=== PATIENT | male | born 1955 | race Caucasian/White ===

== ENCOUNTER 2019-10-14 10:39 | Outpatient (CLI) | payer OTHER, SELFPAY ==
--- NOTE | 2019-10-14 10:54 | XRR_ITS ---
PROCEDURE INFORMATION: Exam: XR Left Foot Complete Exam date and time: 10/14/2019 11:10 AM Age: 64 years old Clinical indication: Pain; Foot; Left; Additional info: Foot pain TECHNIQUE: Imaging protocol: XR Left foot. Views: 3 or more views. COMPARISON: No relevant prior studies available. FINDINGS: Bones/joints: Severe degenerative changes at the first metatarsophalangeal joint. Soft tissues: Normal. XR/XR foot LT min 3V* [id number] IMPRESSION: Severe degenerative changes at the first metatarsophalangeal joint.
== END 2019-10-14 10:40 | disposition home or self-care (01) ==
LOC: RAD 10:45
PROVIDERS: Family Provider Family Medicine; PCP Family Medicine; Visit Provider Family Medicine
DX: M19.072 Primary osteoarthritis, left ankle and foot (principal); M79.672 Pain in left foot
CPT/HCPCS: 73630; 80053; 80061; 83036; 85025

== ENCOUNTER 2019-10-22 08:28 | Outpatient (CLI) | payer OTHER, SELFPAY ==
[2019-10-22 09:50] LABS: Albumin Level 4.2 g/dL (3.5-5.2); Blood Urea Nitrogen 45 mg/dL (8-23); Calcium 9.9 mg/dL (8.5-10.5); Carbon Dioxide 26 mmol/L (22-29); Chloride 105 mmol/L (98-107); Glucose 106 mg/dL (65-115); Sodium 141 mmol/L (136-145)
[2019-10-22 09:54] LABS: Creatinine Urine, Random 124 mg/dL (39-259)
[2019-10-22 10:09] LABS: Microalbum Creatinine Ratio Ur 460 mg/dL (0-20); Microalbumin Random Urine 57 ug/dL (0-20)
[2019-10-22 10:29] LABS: Calcium 9.7 mg/dL (8.5-10.5); Parathyroid Hormone 99.8 pg/mL (15-65)
== END 2019-10-22 08:29 | disposition home or self-care (01) ==
LOC: LAB 08:28
PROVIDERS: Family Provider Family Medicine; PCP Family Medicine; Visit Provider Internal Medicine Nephrology
DX: N18.4 Chronic kidney disease, stage 4 (severe) (principal)
CPT/HCPCS: 80069; 82044; 82310; 83970

== ENCOUNTER → 2019-10-29 07:47 | Outpatient (BNVA) | payer OTHER, SELFPAY | PROVIDERS: Family Provider Family Medicine; PCP Family Medicine; Visit Provider Urology | DX: C61 Malignant neoplasm of prostate (principal); Z85.46 Personal history of malignant neoplasm of prostate; N52.9 Male erectile dysfunction, unspecified; N39.3 Stress incontinence (female) (male) | CPT/HCPCS: 81001; 84153 ==

== ENCOUNTER 2020-01-19 07:52 | Outpatient (CLI) | payer OTHER, MEDICARE, SELFPAY ==
[2020-01-19 08:30] LABS: Albumin Level 4.2 g/dL (3.5-5.2); Anion Gap 17.4 (5-19); Blood Urea Nitrogen 48 mg/dL (8-23); Calcium 9.2 mg/dL (8.5-10.5); Carbon Dioxide 25 mmol/L (22-29); Chloride 100 mmol/L (98-107); Glomerular Filtration Rate 15.1 mL/min (90-130); Glucose 147 mg/dL (65-115); Phosphorus 4.2 mg/dL (2.5-4.5); Potassium 3.4 mmol/L (3.5-5.1); Sodium 139 mmol/L (136-145)
[2020-01-19 08:53] LABS: Parathyroid Hormone 102.4 pg/mL (15-65)
== END 2020-01-19 07:53 | disposition home or self-care (01) ==
LOC: LAB 07:54
PROVIDERS: Family Provider Family Medicine; PCP Family Medicine; Visit Provider Internal Medicine Nephrology
DX: N18.4 Chronic kidney disease, stage 4 (severe) (principal)
CPT/HCPCS: 80069; 82310; 83970

== ENCOUNTER → 2020-02-02 09:18 | Outpatient (BNVA) | payer OTHER, SELFPAY | PROVIDERS: Family Provider Family Medicine; PCP Family Medicine; Visit Provider Family Medicine | DX: E11.21 Type 2 diabetes mellitus with diabetic nephropathy (principal); Z79.4 Long term (current) use of insulin; E78.00 Pure hypercholesterolemia, unspecified | CPT/HCPCS: 80061; 83036 ==

== ENCOUNTER 2020-02-04 09:26 | Outpatient (CLI) | payer OTHER, SELFPAY ==
--- NOTE | 2020-02-04 09:33 | XR_ITS ---
WS: [id number] LATERAL CERVICAL SPINE: 3 view. Lateral radiographs are performed in upright neutral, flexion and extension to the patient's toleranc e. HISTORY: Neck pain COMPARISON: 08/10/2019 Very slight straightening of the normal cervical lordosis. Slight straightening is new since the prio r study. Mild disc space narrowing at C5-6. With flexion and extension there is no significant instab ility. Less than 2 mm anterolisthesis of C4 during neutral and flexion. Developing osteophyte anterio rly at C5-6. XR/XR cervical spine fl/ex [id number] IMPRESSION: 1. No cervical instability. 2. Mild spondylitic changes are stable.
== END 2020-02-04 09:27 | disposition home or self-care (01) ==
LOC: RADWPI 09:29
PROVIDERS: Family Provider Family Medicine; PCP Family Medicine; Visit Provider Licensed Practical Nurse
DX: M54.2 Cervicalgia (principal)
CPT/HCPCS: 72040

== ENCOUNTER 2020-02-25 11:08 | Outpatient (CLI) | payer MEDICARE, OTHER, SELFPAY ==
[2020-02-25 12:09] LABS: Albumin Level 4.5 g/dL (3.5-5.2); Anion Gap 19.9 (5-19); Blood Urea Nitrogen 41 mg/dL (8-23); Calcium 9.8 mg/dL (8.5-10.5); Carbon Dioxide 25 mmol/L (22-29); Chloride 101 mmol/L (98-107); Glucose 195 mg/dL (65-115); Phosphorus 3.9 mg/dL (2.5-4.5); Potassium 3.9 mmol/L (3.5-5.1); Sodium 142 mmol/L (136-145)
== END 2020-02-25 11:09 | disposition home or self-care (01) ==
LOC: LAB 11:19
PROVIDERS: PCP Family Medicine; Visit Provider Internal Medicine Nephrology
DX: N18.5 Chronic kidney disease, stage 5 (principal)
CPT/HCPCS: 36415; 80069

== ENCOUNTER 2020-04-26 07:45 | Outpatient (CLI) | payer MEDICARE, OTHER, SELFPAY ==
[2020-04-26 08:41] LABS: Basophils # 0.1 10^3/uL (0.0-0.1); Basophils % 0.7 %; Eosinophils # 0.3 10^3/uL (0.0-0.8); Eosinophils % 3.8 %; Hemoglobin 12.9 g/dL (11.7-16.6); Lymphocytes # 1.3 10^3/uL (0.8-4.8); Lymphocytes % 18.6 %; Mean Corpuscular HGB Conc 32.3 g/dL (30.0-36.0); Mean Corpuscular Hemoglobin 28.9 pg (28.0-34.0); Mean Corpuscular Volume 89.7 fL (80-94); Mean Platelet Volume 11.2 fL (7.4-10.4); Monocytes # 0.5 10^3/uL (0.2-0.9); Monocytes % 7.2 %; Neutrophils # 4.91 10^3/uL (1.8-7.7); Neutrophils % 69.3 %; Nucleated Red Blood Cells % 0 %; Platelet Count 224 10^3/cmm (130-400); Red Blood Count 4.46 10^6/uL (4.1-5.3); Red Cell Distribution Width 12.3 % (12.1-15.1); White Blood Count 7.1 10^3/uL (4.0-10.0)
[2020-04-26 09:23] LABS: 25 Hydroxy Vitamin D 41 ng/mL (30-100); Albumin Level 4.3 g/dL (3.5-5.2); Anion Gap 14.8 (5-19); Blood Urea Nitrogen 44 mg/dL (8-23); Calcium 9.2 mg/dL (8.5-10.5); Carbon Dioxide 24 mmol/L (22-29); Chloride 104 mmol/L (98-107); Glucose 152 mg/dL (65-115); Phosphorus 3.4 mg/dL (2.5-4.5); Potassium 3.8 mmol/L (3.5-5.1); Sodium 139 mmol/L (136-145)
[2020-04-26 09:34] LABS: Calcium 9.9 mg/dL (8.5-10.5); Parathyroid Hormone 103.8 pg/mL (15-65)
== END 2020-04-26 07:46 | disposition home or self-care (01) ==
LOC: LAB 07:51
PROVIDERS: PCP Family Medicine; Visit Provider Internal Medicine Nephrology
DX: N18.5 Chronic kidney disease, stage 5 (principal)
CPT/HCPCS: 36415; 80069; 82306; 82310; 83970; 85025

== ENCOUNTER → 2020-05-05 09:28 | Outpatient (BNVA) | payer MEDICARE, SELFPAY | PROVIDERS: PCP Family Medicine; Visit Provider Family Medicine | DX: E11.21 Type 2 diabetes mellitus with diabetic nephropathy (principal); Z79.4 Long term (current) use of insulin | CPT/HCPCS: 83036 ==

== ENCOUNTER 2020-06-27 08:20 | Outpatient (CLI) | payer MEDICARE, SELFPAY | END 2020-06-27 08:21 | disposition home or self-care (01) | LOC: LAB 08:24 | PROVIDERS: PCP Family Medicine; Visit Provider Internal Medicine Nephrology | DX: Z01.89 Encounter for other specified special examinations (principal) | CPT/HCPCS: 36415 ==

== ENCOUNTER → 2020-08-04 08:42 | Outpatient (BNVA) | payer MEDICARE, OTHER, SELFPAY | PROVIDERS: PCP Family Medicine; Visit Provider Family Medicine | DX: E11.21 Type 2 diabetes mellitus with diabetic nephropathy (principal); Z79.4 Long term (current) use of insulin; I10 Essential (primary) hypertension; E78.00 Pure hypercholesterolemia, unspecified; N18.4 Chronic kidney disease, stage 4 (severe); L72.3 Sebaceous cyst | CPT/HCPCS: 83036 ==

== ENCOUNTER 2020-08-17 07:51 | Outpatient (CLI) | payer MEDICARE, OTHER, SELFPAY ==
[2020-08-17 08:59] LABS: Creatinine Urine, Random 110 mg/dL (39-259); Microalbumin Random Urine 32 ug/dL (0-20)
[2020-08-17 09:00] LABS: Albumin Level 4.2 g/dL (3.5-5.2); Anion Gap 14.9 (5-19); Blood Urea Nitrogen 41 mg/dL (8-23); Carbon Dioxide 24 mmol/L (22-29); Chloride 107 mmol/L (98-107); Glucose 171 mg/dL (65-115); Phosphorus 3.7 mg/dL (2.5-4.5); Potassium 3.9 mmol/L (3.5-5.1); Sodium 142 mmol/L (136-145)
[2020-08-17 09:01] LABS: Microalbum Creatinine Ratio Ur 291 mg/dL (0-20); Parathyroid Hormone 115.3 pg/mL (15-65)
== END 2020-08-17 07:52 | disposition home or self-care (01) ==
LOC: LAB 07:54
PROVIDERS: PCP Family Medicine; Visit Provider Internal Medicine Nephrology
DX: N18.4 Chronic kidney disease, stage 4 (severe) (principal)
CPT/HCPCS: 80069; 82044; 82310; 83970

== ENCOUNTER → 2020-10-18 08:32 | Outpatient (BNVA) | payer MEDICARE, OTHER, SELFPAY | PROVIDERS: PCP Family Medicine; Visit Provider Family Medicine | DX: I10 Essential (primary) hypertension (principal); E78.00 Pure hypercholesterolemia, unspecified; E11.21 Type 2 diabetes mellitus with diabetic nephropathy; Z79.4 Long term (current) use of insulin | CPT/HCPCS: 80061; 83036; 85025 ==

== ENCOUNTER 2020-11-24 09:00 | Outpatient (CLI) | payer MEDICARE, OTHER, SELFPAY ==
[2020-11-24 10:18] LABS: Urine Creatinine 44 mg/dL (39-259)
[2020-11-24 10:20] LABS: Albumin Level 3.9 g/dL (3.5-5.2); Anion Gap 13.7 (5-19); Blood Urea Nitrogen 39 mg/dL (8-23); Calcium 9.3 mg/dL (8.5-10.5); Carbon Dioxide 24 mmol/L (22-29); Chloride 105 mmol/L (98-107); Glomerular Filtration Rate 18.2 mL/min (90-130); Glucose 227 mg/dL (65-115); Phosphorus 3.6 mg/dL (2.5-4.5); Potassium 3.7 mmol/L (3.5-5.1); Sodium 139 mmol/L (136-145)
[2020-11-24 10:28] LABS: Calcium 9.2 mg/dL (8.5-10.5); Parathyroid Hormone 97.8 pg/mL (15-65)
== END 2020-11-24 09:01 | disposition home or self-care (01) ==
LOC: LAB 11-25 07:39
PROVIDERS: PCP Family Medicine; Visit Provider Internal Medicine Nephrology
DX: N18.4 Chronic kidney disease, stage 4 (severe) (principal)
CPT/HCPCS: 80069; 82310; 82570; 83970

== ENCOUNTER → 2020-12-14 08:08 | Outpatient (BNVA) | payer MEDICARE, OTHER, SELFPAY | PROVIDERS: PCP Family Medicine; Visit Provider Urology | DX: N18.4 Chronic kidney disease, stage 4 (severe) (principal); N39.3 Stress incontinence (female) (male); R97.20 Elevated prostate specific antigen [PSA]; Z85.46 Personal history of malignant neoplasm of prostate | CPT/HCPCS: 81003; 84153 ==

== ENCOUNTER → 2021-01-17 08:57 | Outpatient (BNVA) | payer MEDICARE, OTHER, SELFPAY | PROVIDERS: PCP Family Medicine; Visit Provider Family Medicine | DX: E11.21 Type 2 diabetes mellitus with diabetic nephropathy (principal); Z79.4 Long term (current) use of insulin | CPT/HCPCS: 80053; 83036 ==

== ENCOUNTER 2021-01-24 07:44 | Outpatient (CLI) | payer MEDICARE, OTHER, SELFPAY | END 2021-01-24 07:45 | disposition home or self-care (01) | LOC: LAB 07:46 | PROVIDERS: PCP Family Medicine; Visit Provider Internal Medicine Nephrology | DX: Z01.89 Encounter for other specified special examinations (principal) | CPT/HCPCS: 36415 ==

== ENCOUNTER 2021-02-24 08:49 | Outpatient (CLI) | payer MEDICARE, OTHER, SELFPAY ==
[2021-03-08 13:09] LABS: Miscellaneous Test SENT
== END 2021-02-24 08:50 | disposition home or self-care (01) ==
PROVIDERS: PCP Family Medicine; Visit Provider Internal Medicine Nephrology
DX: Z01.818 Encounter for other preprocedural examination (principal); N18.4 Chronic kidney disease, stage 4 (severe)
CPT/HCPCS: 36415

== ENCOUNTER 2021-03-06 14:13 | Outpatient (CLI) | payer MEDICARE, OTHER, SELFPAY ==
--- NOTE | 2021-03-06 14:18 | XR_ITS ---
WS: [id number] KNEE LEFT TECHNIQUE: 3 views of the left knee CLINICAL INFORMATION: acute left knee pain COMPARISON: None. FINDINGS: Left knee is normal in appearance. No evidence of acute fracture dislocation. Moderate soft tissue ed dagoberto. Hypertrophic patella. Small suprapatellar effusion. Moderate degenerative narrowing at the dhaliwal lofemoral articulation. XR/XR knee LT 3V* [id number] IMPRESSION: 1. 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 2. Small suprapatellar effusion with soft tissue edema. Kellgren-Harshal Classification: grade 2 (minimal): definite osteophytes and p ossible joint space narrowing
== END 2021-03-06 14:14 | disposition home or self-care (01) ==
PROVIDERS: PCP Family Medicine; Visit Provider Family Medicine
DX: M25.562 Pain in left knee (principal); R60.0 Localized edema; M25.462 Effusion, left knee; M13.862 Other specified arthritis, left knee
CPT/HCPCS: 73562; 86618; 86666; 86757

== ENCOUNTER 2021-03-24 08:04 | Outpatient (CLI) | payer MEDICARE, OTHER, SELFPAY ==
[2021-03-24 09:08] LABS: Basophils % 0.7 %; Eosinophils # 0.2 10^3/uL (0.0-0.8); Eosinophils % 2.7 %; Hemoglobin 13.2 g/dL (11.7-16.6); Lymphocytes # 1.1 10^3/uL (0.8-4.8); Lymphocytes % 18.5 %; Mean Corpuscular Hemoglobin 29.9 pg (28.0-34.0); Mean Corpuscular Volume 90.5 fL (80-94); Monocytes # 0.4 10^3/uL (0.2-0.9); Monocytes % 6.3 %; Neutrophils # 4.19 10^3/uL (1.8-7.7); Neutrophils % 71.1 %; Nucleated Red Blood Cells % 0 %; Platelet Count 174 10^3/cmm (130-400); Red Blood Count 4.42 10^6/uL (4.1-5.3); Red Cell Distribution Width 12.1 % (12.1-15.1); White Blood Count 5.9 10^3/uL (4.0-10.0)
[2021-03-24 09:19] LABS: Albumin Level 3.9 g/dL (3.5-5.2); Anion Gap 15.8 (5-19); Blood Urea Nitrogen 35 mg/dL (8-23); Carbon Dioxide 24 mmol/L (22-29); Chloride 106 mmol/L (98-107); Glucose 205 mg/dL (65-115); Phosphorus 3.5 mg/dL (2.5-4.5); Potassium 3.8 mmol/L (3.5-5.1); Sodium 142 mmol/L (136-145)
[2021-03-24 09:32] LABS: Calcium 8.8 mg/dL (8.5-10.5)
[2021-03-24 09:52] LABS: Creatinine Urine, Random 50 mg/dL (39-259); Microalbum Creatinine Ratio Ur 520 mg/dL (0-20); Microalbumin Random Urine 26 ug/dL (0-20)
[2021-03-24 10:12] LABS: Parathyroid Hormone 75.3 pg/mL (15-65)
== END 2021-03-24 08:05 | disposition home or self-care (01) ==
LOC: LAB 08:07
PROVIDERS: Absent Provider Internal Medicine Nephrology; PCP Family Medicine; Visit Provider Internal Medicine Nephrology
DX: Z01.818 Encounter for other preprocedural examination (principal); N18.4 Chronic kidney disease, stage 4 (severe)
CPT/HCPCS: 36415; 80069; 82044; 82310; 83970; 85025

== ENCOUNTER → 2021-04-14 09:30 | Outpatient (BNVA) | payer MEDICARE, OTHER, SELFPAY | PROVIDERS: PCP Family Medicine; Visit Provider Family Medicine | DX: E78.00 Pure hypercholesterolemia, unspecified (principal); E11.21 Type 2 diabetes mellitus with diabetic nephropathy; I10 Essential (primary) hypertension; N18.4 Chronic kidney disease, stage 4 (severe); M25.562 Pain in left knee; Z79.4 Long term (current) use of insulin | CPT/HCPCS: 80061; 83036 ==

== ENCOUNTER 2021-05-26 10:28 | Outpatient (CLI) | payer MEDICARE, OTHER, SELFPAY ==
[2021-05-28 16:23] LABS: HLA-B27 NEGATIVE (NEGATIVE)
== END 2021-05-26 10:29 | disposition home or self-care (01) ==
PROVIDERS: PCP Family Medicine; Visit Provider Internal Medicine Nephrology
DX: Z01.818 Encounter for other preprocedural examination (principal); N18.4 Chronic kidney disease, stage 4 (severe)
CPT/HCPCS: 86812

== ENCOUNTER → 2021-07-18 08:58 | Outpatient (BNVA) | payer MEDICARE, OTHER, SELFPAY | PROVIDERS: PCP Family Medicine; Visit Provider Family Medicine | DX: N18.4 Chronic kidney disease, stage 4 (severe) (principal); E11.21 Type 2 diabetes mellitus with diabetic nephropathy; Z79.4 Long term (current) use of insulin | CPT/HCPCS: 80069; 82043; 82310; 83036; 83970; 85025 ==

== ENCOUNTER → 2021-09-04 13:34 | Outpatient (BNVA) | payer MEDICARE, OTHER, SELFPAY | PROVIDERS: PCP Family Medicine; Visit Provider Family Medicine | DX: R19.7 Diarrhea, unspecified (principal) | CPT/HCPCS: 87493; 87506 ==

== ENCOUNTER → 2021-09-18 13:04 | Outpatient (BNVA) | payer MEDICARE, OTHER, SELFPAY | PROVIDERS: PCP Family Medicine; Visit Provider Family Medicine | DX: R50.81 Fever presenting with conditions classified elsewhere (principal) | CPT/HCPCS: 87635 ==

== ENCOUNTER → 2021-10-17 09:00 | Outpatient (BNVA) | payer MEDICARE, OTHER, SELFPAY | PROVIDERS: PCP Family Medicine; Visit Provider Family Medicine | DX: N18.4 Chronic kidney disease, stage 4 (severe) (principal); E11.21 Type 2 diabetes mellitus with diabetic nephropathy; Z79.4 Long term (current) use of insulin | CPT/HCPCS: 80069; 82306; 82570; 83036; 84156; 85025 ==

== ENCOUNTER 2021-12-14 08:12 | Outpatient (CLI) | payer MEDICARE, OTHER, SELFPAY ==
[2021-12-14 09:29] LABS: Prostate Specific Antigen < 0.014 ng/mL (0-4)
== END 2021-12-14 08:13 | disposition home or self-care (01) ==
PROVIDERS: PCP Family Medicine; Visit Provider Urology
DX: Z85.46 Personal history of malignant neoplasm of prostate (principal)
CPT/HCPCS: 81003; 84153

== ENCOUNTER → 2022-01-09 09:18 | Outpatient (BNVA) | payer MEDICARE, OTHER, SELFPAY | PROVIDERS: PCP Family Medicine; Visit Provider Family Medicine | DX: E11.21 Type 2 diabetes mellitus with diabetic nephropathy (principal); Z79.4 Long term (current) use of insulin; N18.4 Chronic kidney disease, stage 4 (severe); I10 Essential (primary) hypertension; E78.00 Pure hypercholesterolemia, unspecified; M17.12 Unilateral primary osteoarthritis, left knee; G47.30 Sleep apnea, unspecified | CPT/HCPCS: 80069; 82043; 82310; 83036; 83970; 85007; 85027 ==

== ENCOUNTER → 2022-02-15 13:21 | Outpatient (BNVA) | payer MEDICARE, OTHER, SELFPAY | PROVIDERS: PCP Family Medicine; Referring Provider Family Medicine; Visit Provider Specialist | DX: S83.242A Other tear of medial meniscus, current injury, left knee, initial encounter (principal); X58.XXXA Exposure to other specified factors, initial encounter; M17.12 Unilateral primary osteoarthritis, left knee | CPT/HCPCS: 73560; 73565; 99204 ==

== ENCOUNTER → 2022-02-19 11:03 | Outpatient (BNVA) | payer MEDICARE, OTHER, SELFPAY | PROVIDERS: PCP Family Medicine; Visit Provider Internal Medicine Cardiovascular Disease | DX: I13.0 Hypertensive heart and chronic kidney disease with heart failure and stage 1 through stage 4 chronic kidney disease, or unspecified chronic kidney disease (principal); E11.22 Type 2 diabetes mellitus with diabetic chronic kidney disease; N18.4 Chronic kidney disease, stage 4 (severe); I50.32 Chronic diastolic (congestive) heart failure; Z94.0 Kidney transplant status; Z87.891 Personal history of nicotine dependence; Z79.4 Long term (current) use of insulin; E11.21 Type 2 diabetes mellitus with diabetic nephropathy; E78.00 Pure hypercholesterolemia, unspecified | CPT/HCPCS: 99214 ==

== ENCOUNTER → 2022-04-10 09:07 | Outpatient (BNVA) | payer MEDICARE, OTHER, SELFPAY | PROVIDERS: PCP Family Medicine; Visit Provider Family Medicine | DX: E78.00 Pure hypercholesterolemia, unspecified (principal); E11.21 Type 2 diabetes mellitus with diabetic nephropathy; Z79.4 Long term (current) use of insulin; I10 Essential (primary) hypertension; N18.4 Chronic kidney disease, stage 4 (severe) | CPT/HCPCS: 80053; 80061; 83036 ==

== ENCOUNTER 2022-04-26 07:46 | Outpatient (CLI) | payer MEDICARE, OTHER, SELFPAY ==
--- NOTE | 2022-04-26 07:51 | MR_ITS ---
WS: [id number] MRI LEFT KNEE NONCONTRAST TECHNIQUE: Axial PD, coronal PD fat sat, coronal PD, sagittal PD, and sagittal PD fat-sat images obta ined. CLINICAL INFORMATION: knee pain COMPARISON: Radiograph February 15, 2022 FINDINGS: Distal quadriceps and patella tendons are intact. Prepatellar and infrapatellar soft tissue edema. Sm all moderate suprapatellar effusion. Hypertrophic patella. Tendinosis involving the distal patella te ndon just proximal to the insertion. Normal ACL and PCL. Normal lateral meniscus. Peripheral extrusion of the medial meniscus. Subchondral cystic change involving the medial femoral condyle and tibial plateau. Small amount of associated ed dagoberto. Chronic tear with peripheral extrusion of the medial meniscus. Complete loss of the medial joint compartment. Advanced chondromalacia patella. Subchondral edema. Medial and lateral patellar retinaculum are intac t. Medial and lateral collateral ligaments are intact. Small popliteal cyst measuring 1.7 x 1.6 x 5.4 cm transverse by craniocaudal. MR/MR knee LT wo con* [id number] IMPRESSION: 1. Advanced degenerative arthritis involving the medial joint compartment and patellofemoral articulation with [id number] articulation and subchondral colleen a. 2. ACL and PCL are intact. 3. Moderate suprapatellar effusion. 4. Chronic tear with peripheral extrusion of the medial meniscus and complete loss of the joint space. 5. Small popliteal cyst measuring 1.7 x 1.6 x 5.4 cm transverse by craniocauda l. Outbridge grading:
== END 2022-04-26 07:47 | disposition home or self-care (01) ==
PROVIDERS: PCP Family Medicine; Visit Provider Specialist
DX: M17.12 Unilateral primary osteoarthritis, left knee (principal); M25.462 Effusion, left knee; S83.242A Other tear of medial meniscus, current injury, left knee, initial encounter; X58.XXXA Exposure to other specified factors, initial encounter; M71.22 Synovial cyst of popliteal space [Baker], left knee
CPT/HCPCS: 73721

== ENCOUNTER → 2022-05-09 11:02 | Outpatient (BNVA) | payer MEDICARE, OTHER, SELFPAY | PROVIDERS: PCP Family Medicine; Visit Provider Specialist | DX: M17.12 Unilateral primary osteoarthritis, left knee (principal) | CPT/HCPCS: 99213 ==

== ENCOUNTER → 2022-07-10 08:36 | Outpatient (BNVA) | payer MEDICARE, OTHER, SELFPAY | PROVIDERS: PCP Family Medicine; Visit Provider Family Medicine | DX: E11.21 Type 2 diabetes mellitus with diabetic nephropathy (principal); Z79.4 Long term (current) use of insulin | CPT/HCPCS: 80053; 83036 ==

== ENCOUNTER → 2022-09-19 08:26 | Outpatient (BNVA) | payer MEDICARE, OTHER, SELFPAY | PROVIDERS: PCP Family Medicine; Visit Provider Internal Medicine Nephrology | DX: N18.4 Chronic kidney disease, stage 4 (severe) (principal) | CPT/HCPCS: 80069; 82043; 82310; 83970; 85025 ==

== ENCOUNTER → 2022-10-09 08:48 | Outpatient (BNVA) | payer MEDICARE, OTHER, SELFPAY | PROVIDERS: PCP Family Medicine; Visit Provider Family Medicine | DX: E11.21 Type 2 diabetes mellitus with diabetic nephropathy (principal); Z79.4 Long term (current) use of insulin; I10 Essential (primary) hypertension; E78.00 Pure hypercholesterolemia, unspecified | CPT/HCPCS: 83036 ==

== ENCOUNTER 2022-12-11 09:02 | Outpatient (CLI) | payer MEDICARE, OTHER, SELFPAY ==
[2022-12-11 09:52] LABS: Prostate Specific AG Urology < 0.01 ng/mL (0-4)
== END 2022-12-11 09:03 | disposition home or self-care (01) ==
LOC: LAB 09:08
PROVIDERS: PCP Family Medicine; Visit Provider Urology
DX: Z85.46 Personal history of malignant neoplasm of prostate (principal)
CPT/HCPCS: 84153

== ENCOUNTER → 2022-12-13 08:12 | Outpatient (BNVA) | payer MEDICARE, OTHER, SELFPAY | PROVIDERS: PCP Family Medicine; Visit Provider Urology | DX: N52.9 Male erectile dysfunction, unspecified (principal); Z85.46 Personal history of malignant neoplasm of prostate; N18.4 Chronic kidney disease, stage 4 (severe) | CPT/HCPCS: 81003; 99213 ==

== ENCOUNTER → 2023-01-30 08:30 | Outpatient (BNVA) | payer MEDICARE, OTHER, SELFPAY | PROVIDERS: PCP Family Medicine; Visit Provider Internal Medicine Nephrology | DX: N18.4 Chronic kidney disease, stage 4 (severe) (principal) | CPT/HCPCS: 80069; 82043; 82306; 82310; 83970; 85025 ==

== ENCOUNTER → 2023-02-04 15:05 | Outpatient (BNVA) | payer MEDICARE, OTHER, SELFPAY | PROVIDERS: PCP Family Medicine; Visit Provider Dermatology | DX: L30.9 Dermatitis, unspecified (principal); F42.4 Excoriation (skin-picking) disorder; L21.8 Other seborrheic dermatitis; L85.3 Xerosis cutis | CPT/HCPCS: 11104; 99214 ==

== ENCOUNTER → 2023-02-08 09:18 | Outpatient (BNVA) | payer MEDICARE, OTHER, SELFPAY | PROVIDERS: PCP Family Medicine; Visit Provider Family Medicine | DX: E11.21 Type 2 diabetes mellitus with diabetic nephropathy (principal); Z79.4 Long term (current) use of insulin | CPT/HCPCS: 83036 ==

== ENCOUNTER → 2023-02-14 15:01 | Outpatient (BNVA) | payer MEDICARE, OTHER, SELFPAY | PROVIDERS: PCP Family Medicine; Visit Provider Dermatology | DX: T88.7XXA Unspecified adverse effect of drug or medicament, initial encounter (principal); Y99.9 Unspecified external cause status; Z48.02 Encounter for removal of sutures | CPT/HCPCS: 99213 ==

== ENCOUNTER → 2023-02-18 11:14 | Outpatient (BNVA) | payer MEDICARE, OTHER, SELFPAY | PROVIDERS: PCP Family Medicine; Visit Provider Internal Medicine Cardiovascular Disease | DX: R00.2 Palpitations (principal); I13.0 Hypertensive heart and chronic kidney disease with heart failure and stage 1 through stage 4 chronic kidney disease, or unspecified chronic kidney disease; E11.22 Type 2 diabetes mellitus with diabetic chronic kidney disease; N18.4 Chronic kidney disease, stage 4 (severe); I50.32 Chronic diastolic (congestive) heart failure; Z87.891 Personal history of nicotine dependence; Z79.4 Long term (current) use of insulin; E11.21 Type 2 diabetes mellitus with diabetic nephropathy; E78.00 Pure hypercholesterolemia, unspecified | CPT/HCPCS: 99214 ==

== ENCOUNTER → 2023-04-24 14:49 | Outpatient (BNVA) | payer MEDICARE, OTHER, SELFPAY | PROVIDERS: PCP Family Medicine; Visit Provider Dermatology | DX: L30.9 Dermatitis, unspecified (principal); L21.8 Other seborrheic dermatitis | CPT/HCPCS: 11103; 11104; 11105; 99214 ==